=== PATIENT | female | born 1955 | race Caucasian/White ===

== ENCOUNTER 2019-10-11 12:32 | Outpatient (CLI) | payer MEDICAID, SELFPAY ==
--- NOTE | 2019-10-11 12:59 | MM_ITS ---
WS: [id number] Bilateral screening digital mammogram, 10/11/2019 Clinical Data: SCREENING Comparison: 05/10/2018, 05/06/2017, 04/18/2016. Findings: The breast parenchymal pattern shows fat replacement. No spiculated masses or clustered calcification s are seen. There are no secondary signs of carcinoma. MM/[id number] Impression: 1. Negative bilateral mammogram unchanged. 2. Recommend annual screening mammograms. BIRADS: 1-Negative FOLLOW UP: 1 Year Follow-up The CAD dry cleaning checker was used.
== END 2019-10-11 12:33 | disposition home or self-care (01) ==
LOC: RADSHAW 12:34
PROVIDERS: Family Provider Internal Medicine; PCP Internal Medicine; Visit Provider Internal Medicine
DX: Z12.31 Encounter for screening mammogram for malignant neoplasm of breast (principal)
CPT/HCPCS: 77067

== ENCOUNTER → 2020-02-22 14:35 | Outpatient (BNVA) | payer MEDICAID, SELFPAY | PROVIDERS: Family Provider Internal Medicine; PCP Nurse Practitioner Family; Visit Provider Nurse Practitioner Family | DX: J44.9 Chronic obstructive pulmonary disease, unspecified (principal); R06.02 Shortness of breath; E78.5 Hyperlipidemia, unspecified; E11.9 Type 2 diabetes mellitus without complications; I10 Essential (primary) hypertension; E03.9 Hypothyroidism, unspecified | CPT/HCPCS: 71046 ==

== ENCOUNTER → 2020-05-24 09:27 | Outpatient (BNVA) | payer MEDICAID, SELFPAY | PROVIDERS: Family Provider Internal Medicine; PCP Nurse Practitioner Family; Visit Provider Nurse Practitioner Family | DX: E11.9 Type 2 diabetes mellitus without complications (principal); I10 Essential (primary) hypertension; E03.9 Hypothyroidism, unspecified; J44.9 Chronic obstructive pulmonary disease, unspecified; R03.0 Elevated blood-pressure reading, without diagnosis of hypertension | CPT/HCPCS: 80053; 80061; 82043; 83036; 84439; 84443 ==

== ENCOUNTER 2020-11-22 14:28 | Outpatient (CLI) | payer MEDICAID, SELFPAY ==
--- NOTE | 2020-11-22 14:33 | MM_ITS ---
WS: [id number] BILATERAL SCREENING DIGITAL MAMMOGRAM WITH CAD HISTORY: SCREENING COMPARISON: 10/11/2019 05/10/2018 Bilateral CC and MLO views submitted. Computer aided detection analyzed. Breast composition: The breasts are almost entirely fatty. No suspicious masses, microcalcifications or architectural distortion. MM/[id number] IMPRESSION: BI-RADS: 1-Negative FOLLOW UP: 1 Year Follow-up
== END 2020-11-22 14:29 | disposition home or self-care (01) ==
LOC: RADSHAW 14:30
PROVIDERS: PCP Nurse Practitioner Family; Visit Provider Family Medicine
DX: Z12.31 Encounter for screening mammogram for malignant neoplasm of breast (principal)
CPT/HCPCS: 77067

== ENCOUNTER → 2020-11-23 09:32 | Outpatient (BNVA) | payer MEDICAID, SELFPAY | PROVIDERS: PCP Nurse Practitioner Family; Visit Provider Nurse Practitioner Family | DX: E78.5 Hyperlipidemia, unspecified (principal); I10 Essential (primary) hypertension | CPT/HCPCS: 36415; 80053; 80061 ==

== ENCOUNTER 2022-12-03 12:12 | Outpatient (CLI) | payer MEDICARE, MEDICAID, SELFPAY ==
--- NOTE | 2022-12-03 13:41 | MM_ITS ---
WS: [id number] BILATERAL 3D TOMOSYNTHESIS DIGITAL SCREENING MAMMOGRAPHY WITH CAD CLINICAL INFORMATION: SCREENING HISTORY: Screening mammogram. No current complaints. COMPARISON: November 22, 2020 TECHNIQUE: Bilateral CC and MLO views. FINDINGS: Scattered fibroglandular densities bilaterally. No suspicious focal mass, asymmetry, calcifications, or architectural distortion. No evidence of malignancy. Stable coarse calcification RIGHT breast. MM/[id number] IMPRESSION: BI-RADS: 2-Benign FOLLOW UP: 1 Year Follow-up Recommend return to annual screening mammography.
== END 2022-12-03 12:13 | disposition home or self-care (01) ==
LOC: RAD 12:17
PROVIDERS: PCP Nurse Practitioner Family; Visit Provider Nurse Practitioner
DX: Z12.31 Encounter for screening mammogram for malignant neoplasm of breast (principal)
CPT/HCPCS: 77063; 77067

== ENCOUNTER 2023-12-23 13:23 | Outpatient (CLI) | payer MEDICARE, MEDICAID, SELFPAY ==
--- NOTE | 2023-12-23 13:30 | MM_ITS ---
WS: [id number] BILATERAL 3D TOMOSYNTHESIS DIGITAL SCREENING MAMMOGRAM WITH CAD CLINICAL INFORMATION: SCREENING HISTORY: Screening mammogram. No current complaints. COMPARISON: 2022 TECHNIQUE: Bilateral CC and MLO views. FINDINGS: Fatty-replaced breasts bilaterally. No suspicious focal mass, asymmetry, calcifications, or embedded software architect ural distortion. No evidence of malignancy. Benign calcification RIGHT breast. MM/[id number] IMPRESSION: BI-RADS: 2-Benign FOLLOW UP: 1 Year Follow-up Recommend return to annual screening mammography.
== END 2023-12-23 13:24 | disposition home or self-care (01) ==
LOC: MOBLMAM 13:29
PROVIDERS: PCP Nurse Practitioner; Visit Provider Nurse Practitioner
DX: Z12.31 Encounter for screening mammogram for malignant neoplasm of breast (principal)
CPT/HCPCS: 77063; 77067

== ENCOUNTER 2025-03-21 15:18 | Emergency (ER) | payer OTHER, MEDICAID, SELFPAY ==
--- OUTSIDE RECORDS SUMMARY | 2024-07-21 09:30 | XMS_ITS ---
Author Organization [facility] Address [address] [place] [id number] Care Team Providers Care Sugar Mixer Name Role Phone Garvin, Rosario Joanie [phone] REASON FOR VISIT 3 month f/u Social History Sex Assigned At : Social History Observation Description Sex Assigned At Female Encounters Encounter Location Date Provider Diagnosis [facility] [address] [place] [id number] 07/21/2024 Rosario Mcgill Plan Of Treatment No Information Progress Notes * Lydia POOLE KDOB:[birth year] (69 yo F)Acc No.[id number]:07/21/2024 Patient: Gavin WICK Lydia Jackie Provider: Cathi Mcgill :1955 A ge:69 Y S ex:Female Date:07/21/2024 Address:[address] [id number] Subjective: * Chief Complaints: * 1 . 3 month f/u. * Medical History: Objective: * Vitals: Assessment: Plan: * Treatment: * Billing Information: * Visit Code: * Procedure Codes: * Electronic signature of KELVIN Moreno i on 03/22/2025 at 05:51 PM CDT Sign off status: Pending * Provider: Cathi Mcgill Date: 09/21/2023 Generated for Printi ng/Faxing/eTransmitting on: 0 03/22/2025 05:51 PM CDT
--- OUTSIDE RECORDS SUMMARY | 2025-02-14 09:20 | XMS_ITS ---
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 Name Role Phone Adonis Mcgilli Joanie [phone] REASON FOR VISIT would not specify Social History Sex Assigned At : Social History Observation Description Sex Assigned At Female Encounters Encounter [facility] Date [facility] [address] [phone] 02/14/2025 Rosario Mcgill Plan Of Treatment No Information Progress Notes * Lydia POOLE KDOB:[birth year] (69 yo F)Acc No.[id number]:02/14/2025 Patient: Gavin WICK Lydia Mejia Provider: Cathi Mcgill :1955 A ge:69 Y S ex:Female Date:02/14/2025 Address:[address] [id number] Subjective: * Chief Complaints: * 1 . Would not specify. * Medical History: Objective: * Vitals: Assessment: Plan: * Treatment: * Billing Information: * Visit Code: * Procedure Codes: * Electronic signature of ALVIN Moreno [email or web address] on 03/22/2025 at 05:51 PM CDT Sign off status: Pending * Provider: Cathi Mcgill Date: 02/14/2025 Generated for Cruz ng/Fahalieg/eTransmitting on: 0 03/22/2025 05:51 PM CDT
[2025-03-21 15:18] VITALS: BP 133/72; PULSE 95; RESP 18; TEMP 36.8; O2SAT 96; BMI 18.6
--- NOTE | 2025-03-21 15:21 | CTR_ITS ---
PROCEDURE INFORMATION: Exam: CT Cervical Spine Without Contrast Exam date and time: 03/21/2025 3:30 PM Age: 69 years old Clinical indication: Injury or trauma; Fall; Blunt trauma TECHNIQUE: Imaging protocol: Computed tomography of the cervical spine without contrast. Radiation optimization: All CT scans at this facility use at least one of these dose optimization techniques: automated exposure control; mA and/or kV adjustment per patient size (includes targeted exams where dose is matched to clinical indication); or iterative reconstruction. COMPARISON: CT head wo con* [id number] 03/21/2025 3:30 PM RADIATION DOSE METRICS: Total DLP (mGy-cm): 134 FINDINGS: Bones: Chronic multilevel degenerative changes of the cervical spine with loss of intervertebral disc height, uncovertebral and facet joint hypertrophy, and posterior disc osteophyte complexes contributing to varying degrees of multilevel neural foraminal and spinal canal stenosis. No high-grade spinal canal stenosis. Discontiguous ossification of the posterior longitudinal ligament, spanning from C2 to upper C6 levels. Lungs: Scarring of the lung apices. Soft tissues: Unremarkable. CT/CT cervical spin wo con* [id number] IMPRESSION: 1. No acute fracture or subluxation of the cervical spine. 2. Chronic degenerative changes and ossification of the posterior longitudinal ligament.
--- NOTE | 2025-03-21 15:21 | ED_ITS ---
HPI - Fall General: Chief Complaint: Neck Pain/Injury Stated Complaint: fall - neck pain Time Seen by Provider: 03/21/25 15:18 Source: patient and EMS Mode of arrival: EMS Limitations: no limitations History of Present Illness: 69-year-old female who states that she f ell backward off her porch roughly 1 to 2 feet. She did hit her head does have a laceration to the top of her head roughly 1 cm she complains some neck pain is currently in c-collar she had abrasion to her right arm denies pain in that arm denies any pain besides her head neck. Associated symptoms-after fall: Reports headache(s) and neck pain; Denies abdominal pain or chest pain Related Data Home Medications ?Medication ?Instructions ?Recorded ?Confirmed blood sugar diagnostic (FreeStyle #10 ea 02/22/2005/10 Lite Strips) budesonide-formoterol HFA 160 2 puff inhalation BID 05/24/20 mcg-4.5 mcg/actuation aerosol inhaler (Symbicort) multivitamin (One-A-Day Essential 1 tab PO DAILY 02/2105/24/20 tablet) Previous Rx's ?Medication ?Instructions ?Recorded blood-glucose meter (OneTouch #1 ea 04/09/20 Verio Flex Start kit) pioglitazone 15 mg tablet 15 mg PO DAILY #90 tabs 04/29 blood sugar diagnostic (OneTouch #100 ea 07/18/20 Verio test strips) glipizide 10 mg tablet 10 mg PO BID #60 tabs atorvastatin 40 mg tablet See Rx Instructions .Route 0 12/18/20 .COMPLEX #30 tabs lisinopril 2.5 mg tablet 2.5 mg PO DAILY #90 tabs 04/30 metformin 500 mg tablet See Rx Instructions .Route 0 03/20/21 .COMPLEX #60 tabs tiotropium bromide 18 mcg capsule See Rx Instructions .Route 07/02/21 with inhalation device (Spiriva .COMPLEX #30 inhalatio ns with HandiHaler) albuterol sulfate 90 mcg/actuation See Rx Instructions .Route 09/17/21 aerosol inhaler (ProAir HFA) .COMPLEX #8.5 grams levothyroxine 125 mcg tablet See Rx Instructions .Rout e 12/13/21 .COMPLEX #30 tabs metoprolol succinate 25 mg See Rx Instructions .Route 12/13/21 tablet,extended release 24 hr .COMPLEX #30 tabs Allergies Allergy/AdvReac Type Severity Reaction Status Date / Time cephalexin (From Keflex) Allergy Unknown Verified 05/24/20 09:01 ciprofloxacin (From Cipro) Allergy ADR-Itching Verified 05/24/20 09:01 codeine Allergy ADR-Vomitin Verified 05/24/20 09:01 g Influenza Virus Vaccines Allergy Unknown Verified 05/24/20 09:01 metronidazole (From Flagyl) Allergy ADR-Itching Verified 05/24/20 09:01 miconazole Allergy Unknown Verified 05/24/20 09:01 penicillin G Allergy ADR-Itching Verified 05/24/20 09:01 Review of Systems Const: Denies: fever(s), chills, body aches or change in appetite ENMT: Denies: throat pain or dental pain Card: Denies: chest pain Resp: Denies: dyspnea GI: Denies: abdominal pain, nausea, vomiting or diarrhea Musc: Reports: neck pain; Denies: back pain Skin/Breast: Denies: rash Neuro: Reports: headache(s) [facility] ED PFSH: Medical History Diabetes Hypertension Hyperlipidemia Hypothyroid Social History Smoking and tobacco/nicotine status: current some day tobacco/nicotine user cigarettes Packs smoked per day: 1.5 Alcohol intake: never Substance/Drug Use: never Physical Exam Const: COMMON NORMALS: no acute distress, patient oriented x3 and healthy appearing HENMT: COMMON NORMALS: normocephalic HEAD & SCALP: normocephalic OTHER: 1cm superficial laceration to scalp Eye: COMMON NORMALS: Equal, round and reactive pupils present and EOMs intact bilaterally PUPIL: Yes Equal, round and reactive pupils present Neck/C-Spine: OTHER: in c collar Chest: COMMONS NORMALS: normal inspection of the chest and normal palpation of entire chest wall Resp: COMMON NORMALS: normal respiratory effort, No retractions, No use of accessory muscles and clear to auscultation bilaterally AUSCULTATION: clear to auscultation bilaterally Cardio: COMMON NORMALS: regular rate, regular rhythm and No murmurs present (Cardio) RATE: regular rate RHYTHM: regular rhythm GI: COMMON NORMALS: Normal to inspection, nondistended, normoactive bowel sounds present, Soft to palpation, non-tender and no masses PALPATION: Yes Soft to palpation Extremity: COMMON NORMALS: normal to inspection and full ROM Neuro: COMMON NORMALS: patient oriented x3, moves all extremities and no focal motor deficits Psych: COMMON NORMALS: mental status grossly normal, Normal thought process present and cooperative THOUGHT PROCESS: Normal thought process present Skin: COMMON NORMALS: no rashes or lesions noted and no wounds GENERAL SKIN EXAM: no rashes or lesions noted Course Vital Signs: Vital signs: Vital Signs Temperature 98.2 F 03/21/25 15:18 Pulse Rate 95 03/21/25 15:18 Respiratory Rate 18 03/21/25 15:34 Blood Pressure 133/72 03/21/25 15:18 Pulse Oximetry 98 03/21/25 15:34 Oxygen Delivery Me thod Room Air 03/21/25 15:34 MDM - Fall Medical Decision Making Patient presents here after a fall CT showed acceptable intraparenchymal hematoma spoke to [facility] will transfer for high-level care for neurosurgery Medical Records I reviewed the patient's medical records. Lab Data Radiology Impressions Cervical Spine CT 03/21/25 15:21 IMPRESSION: 1. No acute fracture or subluxation of the cervical spine. 2. Chronic degenerative changes and ossification of the posterior longitudinal ligament. All radiology interpretation(s) finalized by discharge Discharge Plan Discharge Patient Disposition: Xfer Short-Term Hosp Clinical Impression: Fall, Occipital epidural hematoma Condition: Stable Referrals: Rosario Mcgill FNP [Primary Care Provider, [facility]] Print Language: Nepali Coding Level of Care Code ED Sales Porter for Tony Bliss
--- NOTE | 2025-03-21 15:21 | CTR_ITS ---
PROCEDURE INFORMATION: Exam: CT Head Without Contrast Exam date and time: 03/21/2025 3:30 PM Age: 69 years old Clinical indication: Injury or trauma; Fall TECHNIQUE: Imaging protocol: Computed tomography of the head without contrast. Radiation optimization: All CT scans at this facility use at least one of these dose optimization techniques: automated exposure control; mA and/or kV adjustment per patient size (includes targeted exams where dose is matched to clinical indication); or iterative reconstruction. COMPARISON: CT cervical spin wo con* [id number] 03/21/2025 3:30 PM RADIATION DOSE METRICS: Total DLP (mGy-cm): 1135.3 FINDINGS: Brain: Ovoid region of hyperdensity in the posterior right occipital lobe, measuring 2.4 x 1.8 x 1.6 cm (less than 30 cc). No subdural or subarachnoid hemorrhage. No significant mass effect or midline shift. Mild patchy areas of hypoattenuation within the periventricular white matter are nonspecific but likely reflect a background of mild microvascular ischemic changes. Cerebral ventricles: The ventricles and sulci are proportionately enlarged, compatible with parenchymal atrophy. Paranasal sinuses: Visualized sinuses are unremarkable. No fluid levels. Mastoid air cells: Visualized mastoid air cells are well aerated. Bones: Unremarkable. No acute fracture. Soft tissues: Unremarkable. CT/CT head wo con* [id number] IMPRESSION: Acute rounded region of hyperdensity measuring 2.4 x 1.8 x 1.6 cm in the posterior right occipital lobe, concerning for acute intraparenchymal hemorrhage, without significant mass effect or midline shift. Given the absence of additional traumatic findings, such as soft tissue injury or fracture, an underlying neoplasm or vascular malformation is not excluded. Recommend MRI brain with and without contrast for further evaluation. COMMENTS: THIS REPORT CONTAINS FINDINGS THAT MAY BE CRITICAL TO PATIENT CARE. The exam findings were verbally communicated by me to ANJANA VALDEZ via telephone conference at 4:44 PM CDT on 03/21/2025. The findings were acknowledged and understood.
[2025-03-21 15:34] VITALS: RESP 18; O2SAT 98
[2025-03-21 17:42] LABS: Hematocrit 42.1 % (36-47); Hemoglobin 13.50 g/dL (11.27-16.99); Mean Corpuscular HGB Conc 32.1 g/dL (30-55); Mean Corpuscular Hemoglobin 28.5 pg (27-33); Mean Corpuscular Volume 89.0 fl (85-98); Nucleated Red Blood Cells % 0 %; Platelet Count 229 10^3/cmm (157-399); Red Blood Count 4.73 10^6/uL (3.85-5.65); White Blood Count 10.86 10^3/uL (3.29-11.43)
[2025-03-21 17:57] VITALS: BP 134/72; PULSE 67; O2SAT 100
[2025-03-21 18:07] LABS: Alanine Aminotransferase 11 U/L (0-33); Albumin Level 4.1 g/dL (3.5-5.2); Alkaline Phosphatase 67 U/L (35-105); Anion Gap 11.9 (5-19); Aspartate Amino Transferase 16 U/L (0-32); Blood Urea Nitrogen 12 mg/dL (8-23); Calcium 9.8 mg/dL (8.5-10.5); Carbon Dioxide 29 mmol/L (22-29); Chloride 103 mmol/L (98-107); Creatinine Clr Calc Pharmacy 41.8548; Globulin 3.4 g/dL (1.3-4.6); Glucose 169 mg/dL (65-115); Osmolality Calculated 294 mOsm/kg (285-295); Potassium 3.9 mmol/L (3.5-5.1); Sodium 140 mmol/L (136-145); Total Protein 7.5 g/dL (6.6-8.7)
[2025-03-21 18:24] LABS: INR 0.91 (0.8-1.2); Prothrombin Time 12.90 SECONDS (12.1-14.9)
--- OUTSIDE RECORDS SUMMARY | 2025-03-22 17:52 | XMS_ITS ---
Author Organization Unknown TREATMENT PLAN [facility] Start Date Provider Encounter for Check-up [id number] [facility]
--- OUTSIDE RECORDS SUMMARY | 2025-03-22 17:52 | XMS_ITS | Patient Health Record ---
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 Name Role Phone Rosario Mcgill Unavailable [phone] Allergies Allergen (clinical drug ingredient) Drug/Non Drug Allergy documented on EMR Reaction Allergy Type Onset Date Status Influenza Virus Vaccine Live arm swelling, weak Drug Allergy Active semaglutide Ozempic DEFERS Drug Allergy Activ e cephalexin Cephalexin facial swelling Drug Allergy Active ciprofloxacin Ciprofloxacin rash Drug Allergy Active codeine Codeine nausea and vomiting Drug Allergy Active metronidazole Metronidazole rash Drug Allergy Active Penicillin rash Drug Allergy Active pioglitazone Pioglitazone swelling below the waist Drug Allergy Active Results Component Value Reference Range Notes HEMOGLOBIN A1c (496) Reviewed date:04/10/2024 08:03:19 AM Interpretation: Performing Lab:[place], [id number] Deedee Lindquist, [id number] Fatimah Bianchi MD Notes/Report: 0 0 0 HEMOGLOBIN A1c 7.9 <5.7 % of total Hgb For someone without known diabetes, a hemoglobin A1c value of 6.5% or greater indicates that they may have diabetes and this should be confirmed with a follow-up test. For someone with known diabetes, a value <7% indicates that their diabetes is well controlled and a value greater than or equal to 7% indicates suboptimal control. A1c targets should be individualized based on duration of diabetes, age, comorbid conditions, and other considerations. Currently, no consensus exists regarding use of hemoglobin A1c for diagnosis of diabetes for children. This test was performed on the Nyla sanket c503 platform. Effective 10/26/23, a change in test platforms from the [employer]ent[employer] Cutter to the Nyla sanket c503 may have shifted HbA1c results compared to historical results. Based on laboratory validation testing conducted at [facility], the Nyla platform relative to the Tolentino platform had an average increase in HbA1c value of < or = 0.3%. This difference is within accepted variability established by the National Glycohemoglobin Standardization Program. Note that not all individuals will have had a shift in their results and direct comparisons between historical and current results for testing conducted on different platforms is not recommended. CBC (INCLUDES DIFF/PLT) (639 9) Reviewed date:04/10/2024 08:03:18 AM Interpretation: Performing Lab:[facility][id number] Sylvia [id number] Fatimah Bianchi MD Notes/Report: 0 0 0 WHITE BLOOD CELL COUNT 8.1 3.8-10.8 Thousand/ uL RED BLOOD CELL COUNT 4.73 3.80-5.10 Million/uL HEMOGLOBIN 14.6 11.7-15.5 g/dL HEMATOCRIT 46.7 35.0-45.0 % MCV 98.7 80.0-100.0 fL MCH 30.9 27.0-33.0 pg MCHC 31.3 32.0-36.0 g/dL RDW 13.9 11.0-15.0 % PLATELET COUNT 255 140-400 Thousand/uL MPV 10.7 7.5-12.5 fL ABSOLUTE NEUTROPHILS 4155 4932-2093 cells/uL ABSOLUTE LYMPHOCYTES 3086 850-3900 cells/uL ABSOLUTE MONOCYTES 437 200-950 cells/uL ABSOLUTE EOSINOPHILS 365 15-500 cells/uL ABSOLUTE BASOPHILS 57 0-200 cells/uL NEUTROPHILS 51.3 LYMPHOCYTES 38.1 MONOCYTES 5.4 EOSINOPHILS 4.5 BASOPHILS 0.7 COMPREHENSIVE METABOLIC PANE L (29606) Reviewed date:04/10/2024 08:03:18 AM Interpretation: Performing Lab:[id number] Sylvia [id number] Fatimah Bianchi MD Notes/Report: 0 0 0 GLUCOSE 202 65-99 mg/dL Fasting reference interval For someone without known diabetes, a glucose value >125 mg/dL indicates that they may have diabetes and this should be confirmed with a follow-up test. UREA NITROGEN (BUN) 25 7-25 mg/dL CREATININE 1.27 0.50-1.05 mg/dL EGFR 47 > OR = 60 mL/min/1.73m2 BUN/CREATININE RATIO 20 6-22 (calc) SODIUM 138 135-146 mmol/L POTASSIUM 4.6 3.5-5.3 mmol/L CHLORIDE 101 98-110 mmol/L CARBON DIOXIDE 29 20-32 mmol/L CALCIUM 9.6 8.6-10.4 mg/dL PROTEIN, TOTAL 7.3 6.1-8.1 g/dL ALBUMIN 4.3 3.6-5.1 g/dL GLOBULIN 3.0 1.9-3.7 g/dL (calc) ALBUMIN/GLOBULIN RATIO 1.4 1.0-2.5 (calc) BILIRUBIN, TOTAL 0.3 0.2-1.2 mg/dL ALKALINE PHOSPHATASE 46 37-153 U/L AST 18 10-35 U/L ALT 16 6-29 U/L Reason For Referral Reason Evaluation/consult-r ecent decline, failure to thrive Diagnosis 1 Chronic obstructive pulmonary disease, unspecified COPD type (J44.9) Diagnosis 2 Chronic kidney disea se, stage 3a (N18.31) Diagnosis 3 Type 2 diabetes debbi itus with hyperglycemia, without long-term current use of insulin (E11.65) Diagnosis 4 On home oxygen thera py (Z99.81) [facility] Referring Provider First Name Rosario Referring Provider Last Name [place] Referring Provider [facility] Referred Provider Mary, [facility] General Notes Sofie Lopez 2023 04:02:38 PM >Insurance card attached. Referral faxed., Sofie Lopez 05/31/2024 09:05:10 AM >TC from Miry[facility] ortega/ Mary. Confirmed pt's initial nurse visit was 05/30/24. They will go out within a few days to do a formal evaluation. Referral Priority Routine Referral Appointment Date 05/31/2024 Medications Medication SIG (Take, Route, Frequency, Duration) Notes Start Date End Date Status Acetaminophen 500 MG 1 tablet as needed Orally every 6 hrs As needed for leg pain at night 01/06/2024 Active Rosuvastatin Calcium 40 MG 1 tablet Orally Once a day; Duration: 90 days Active Levothyroxine Sodium 137 MCG 1 tablet in the morning on an empty stomach Orally Once a day; Duration: 90 days Active Spiriva HandiHaler 18 mcg INHALE CONTENTS OF ONE CAPSULE PER HANDIHALER ONCE DAILY; Duration: 30 Active glipiZIDE 10 mg TAKE ONE TABLET BY MOUTH TWICE DAILY; Duration: 30 Active Multivitamin Adults 50+ Active metFORMIN HCl 1000 MG 1 tablet with a meal Orally Once a day; Duration: 30 days Active Oxygen-Helium 2L at HS Active Combivent Respimat 20-100 MCG/ACT 2 puffs as needed Inhalation every 6 hrs As needed Not-Taking Ventolin HFA 108 (90 Base) MCG/ACT Inhalation Active Metoprolol Succinate ER 50 MG 1 tablet Orally Once a day dose increase. d/c the 25mg dose please. estefani/betty 10/16/2023 Active Lisinopril 2.5 mg TAKE ONE TABLET BY MOUTH ONCE DAILY Active Social History Tobacco Use: Social History Observation Description Date Details (start date - stop date) Current Smoker NA - NA Sex Assigned At : Social History Observation Description Sex Assigned At Female Household Question Answer Notes Marital status: Tobacco Use/Smoking Question Answer Notes Tobacco use: current smoker How often do you smoke cigarettes? every day How many cigarettes a day do you smoke? 31 or mo re Are you interested in quitting? Ready to quit Additional Findings: Tobacco User Heavy cigarett e smoker (20-39 cigs/day) Problems Problem Type SNOMED Code ICD Code Onset Dates Problem Status W/U Status Risk Notes Problem Diabetic renal disease (744140014) Type 2 diabetes mellitus with diabetic chronic kidney disease (E11.22) Active confirmed Problem Mixed hyperlipidemia (117736268) Mixed hyperlipidemia (E78.2) Active confirmed Problem Essential hypertension (71503235) Essential (primary) hypertension (I10) Active confirmed Problem Chronic kidney disease stage 3A (disorder) (672721791) Chronic kidney disease, stage 3a (N18.31) Active confirmed Problem Hyperglycemia due to type 2 diabetes mellitus (164840749517101) Type 2 diabetes mellitus with hyperglycemia, without long-term current use of insulin (E11.65) Active confirmed Problem COPD - Chronic obstructive pulmonary disease (44597987) Chronic obstructive pulmonary disease, unspecified COPD type (J44.9) Active confirmed Problem Home oxygen therapy (774272558) On home oxygen therapy (Z99.81) Active confirmed Problem Type II diabetes mellitus without complication (939482493) Type 2 diabetes mellitus without complication, without long-term current use of insulin (E11.9) Inactive confirmed Vital Signs Heart Rate 112 /min 04/14/2024 Temperature 97.1 degrees Fahrenheit 04/14/2024 Height-cm 157.48 cm 04/14/2024 Oximetry 92 % 04/14/2024 Blood pressure diastolic 62 mm Hg 04/14/2024 Weight-kg 51.07 kg 04/14/2024 Height 62 in 04/14/2024 Blood pressure systolic 118 mm Hg 04/14/2024 Weight 112.6 lbs 04/14/2024 BMI 20.59 kg/m2 04/14/2024 Encounters Encounter Location Date Provider Diagnosis [facility] hospital [facility] [address] [address] 04/07/2024 Rosario Mcgill Type 2 diabetes debbi itus with hyperglycemia, without long-term current use of insulin E11.65 [facility] [address] [address] 04/14/2024 Rosario Type 2 diabetes debbi itus with hyperglycemia, without long-term current use of insulin E11.65 ; Weight loss, unintentional R63.4 ; Chronic obstructive pulmonary disease, unspecified COPD type J44.9 ; Essential (primary) hypertension I10 ; Albuminuria R80.9 ; Chronic kidney disease, stage 3a N18.31 and Hypothyroidism (acquired) E03.9 Critical access hospital [facility] [address] [address] 05/26/2024 [facility] [address] [address] 03/14/2025 [facility] [address] [place] [phone] 03/21/2025 Rosario Mcgill Assessments Encounter Date Diagnosis (ICD Code) Assessment Notes Treatment Notes Treatment Clinical Notes Section Notes 04/07/2024 Type 2 diabetes mellitus with hyperglycemia, without long-term current use of insulin (ICD-10 - E11.65) labs drawn by Yvon Mason LPN 04/14/2024 Type 2 diabetes mellitus with hyperglycemia, without long-term current use of insulin (ICD-10 - E11.65) 04/14/2024 Weight loss, unintentional (ICD-10 - R63.4) we discussed meal planning. 04/14/2024 Chronic obstructive pulmonary disease, unspecified COPD type (ICD-10 - J44.9) Chronic Obstructive Pulmonary Disease (COPD): Care Instructions material was printed 04/14/2024 Essential (primary) hypertension (ICD-10 - I10) 04/14/2024 Albuminuria (ICD-10 - R80.9) she defers referral 04/14/2024 Chronic kidney disease, stage 3a (ICD-10 - N18.31) 04/14/2024 Hypothyroidism (acquired) (ICD-10 - E03.9) Plan Of Treatment Future Test Test Name Order Date COMPREHENSIVE METABOLIC PANEL (34242) HEMOGLOBIN A1c (496) 07/16/2024 TSH W/REFLEX TO FT4 (50734) 07/16/2024 Insurance Providers Payer Name Payer Address Payer Phone Subscriber Number Group Number Insured Name Patient Relationship to Insured Coverage Start Date Coverage End Date [facility] [id number] [place] [id number] Lydia Poole Self - patient is the insured 5 Medicaid [address] [place] [address] [id number] Lydia Poole Self - patient is the insured Medical (General) History Medical History History ICD Code COPD DM 2 Hypothyroidism, acquired d/t ablation 19 96 HTN Constant exophthalmos Diverticulosis Postmenopausal Cigarette smoker stress test 2013 colonoscopy 2017 normal EGD, hiatal hernia 2017 mammo 12/2023 normal pap age 67. normal DEXA: defers [employer] [facility] Q2 yr for exam and glasses.; due Surgical History Surgery Date(Month/Year) Exploratory Laporotomy 2016
== END 2025-03-21 17:59 | disposition short-term general hospital (02) ==
PROVIDERS: Emergency Medicine; Emergency Provider Emergency Medicine; PCP Nurse Practitioner
DX: S06.4XAA Epidural hemorrhage with loss of consciousness status unknown, initial encounter (principal); W17.89XA Other fall from one level to another, initial encounter; E11.9 Type 2 diabetes mellitus without complications; E78.5 Hyperlipidemia, unspecified; I10 Essential (primary) hypertension; F17.210 Nicotine dependence, cigarettes, uncomplicated
CPT/HCPCS: 36415; 70450; 72125; 80053; 85025; 85610; 99284